=== PATIENT | female | born 1960 | race Caucasian/White ===

== ENCOUNTER → 2017-03-08 | Outpatient (REF) ==
[2017-03-08 19:01] LABS: THYROID STIMULATING HORMONE 0.492 uIU/mL (0.465-4.680)
== END ==
LOC: ZLAB.WCH 18:05
PROVIDERS: Nurse Practitioner Family
DX: Z01.89 Encounter for other specified special examinations (principal)

== ENCOUNTER → 2018-04-12 | Outpatient (REF) ==
[2018-04-12 18:37] LABS: THYROID STIMULATING HORMONE 0.381 uIU/mL (0.465-4.680)
== END ==
LOC: ZLAB.WCH 17:50
DX: Z01.89 Encounter for other specified special examinations (principal)

== ENCOUNTER → 2018-05-25 | Outpatient (REF) ==
[2018-05-25 17:01] LABS: THYROID STIMULATING HORMONE 0.749 uIU/mL (0.465-4.680)
== END ==
LOC: ZLAB.WCH 16:01
PROVIDERS: Physician Assistant
DX: Z01.89 Encounter for other specified special examinations (principal)

== ENCOUNTER → 2023-04-25 | Outpatient (CLI) | payer BC | LOC: MC.RAD 08:43 | DX: Z12.31 Encounter for screening mammogram for malignant neoplasm of breast (principal) ==